=== PATIENT | female | born 1965 | race Caucasian/White ===

== ENCOUNTER → 2017-05-27 | Outpatient (CLI) | payer OTHER ==
[2017-05-27 08:47] LABS: Basophils # (A) 0.1 k/uL (0-0.2); Basophils % (A) 1 %; CH 32.2; CHCM 34.6; Eosinophils # (A) 0.2 k/uL (0-0.7); Eosinophils % (A) 3 %; HDW 2.82; HGB 14.5 gm/dL (11.4-16.0); Luc # (Auto) 0.13; Luc % (Auto) 2; Lymphocytes # (A) 2.5 k/uL (1.0-4.8); Lymphocytes % (A) 41 %; MCH 32.2 pg (25.0-35.0); MCHC 34.5 g/dL (31.0-37.0); MCV 93.3 fL (80.0-100.0); Mean Platelet Volume 7.9; Monocytes # (A) 0.4 k/uL (0-1.0); Monocytes % (A) 6 %; Neutrophils # (A) 2.9 k/uL (1.3-7.7); Neutrophils % (A) 47 %; RDW 13.7 % (11.5-15.5); WBC 6.1 k/uL (3.8-10.6)
[2017-05-27 08:50] LABS: ALT 45 U/L (9-52); AST 23 U/L (14-36); Alkaline Phosphatase 108 U/L (38-126); Anion Gap 9 mmol/L; Blood Urea Nitrogen 21 mg/dL (7-17); Calcium 9.7 mg/dL (8.4-10.2); Carbon Dioxide 30 mmol/L (22-30); Chloride 102 mmol/L (98-107); Cholesterol 223 mg/dL (<200); Glucose 94 mg/dL (74-99); HDL Cholesterol 62 mg/dL (40-60); Non-African American GFR(MDRD) 50 (>60 ml/min/1.73 sqM); Potassium 4.3 mmol/L (3.5-5.1); Sodium 141 mmol/L (137-145); Total Bilirubin 0.7 mg/dL (0.2-1.3); Total Protein 7.7 g/dL (6.3-8.2); Triglycerides 149 mg/dL (<150)
--- NOTE | 2017-05-31 11:04 | MM ---
Reason for exam: screening (asymptomatic). Last mammogram was performed 1 year ago. History: Patient is postmenopausal. Family history of breast cancer in grandmother. Took hormonal contraceptives for 6 months. Took estrogen for 14 years beginning at age 32. Physical Findings: A clinical breast exam by your physician is recommended on an annual basis and results should be correlated with mammographic findings. MG 3D Screening Mammo W/Cad Bilateral CC and MLO view(s) were taken. Prior study comparison: May 21, 2014, right breast MG work up mamm w CAD RT. No significant changes when compared with prior studies. ASSESSMENT: Negative, BI-RAD 1 RECOMMENDATION: Routine screening mammogram of both breasts in 1 year.
== END ==
LOC: RADMAMWWP 07:38
PROVIDERS: ATTEND Family Medicine
DX: Z12.31 Encounter for screening mammogram for malignant neoplasm of breast (principal); I10 Essential (primary) hypertension
CPT/HCPCS: 80061; 80053; 84443; 85025; 77063; G0202

== ENCOUNTER → 2017-06-14 | Outpatient (CLI) | payer OTHER | END | disposition home or self-care (01) | LOC: LABWHC1 08:26 | PROVIDERS: ATTEND Family Medicine | DX: R94.4 Abnormal results of kidney function studies (principal) | CPT/HCPCS: 36415; 82565; 84520 ==

== ENCOUNTER → 2017-07-13 | Outpatient (CLI) | payer OTHER ==
[2017-07-13 10:23] LABS: Calcium 9.7 mg/dL (8.4-10.2); Potassium 4.6 mmol/L (3.5-5.1)
== END | disposition home or self-care (01) ==
LOC: LABWHC1 09:16
PROVIDERS: ATTEND Family Medicine
DX: R79.89 Other specified abnormal findings of blood chemistry (principal)
CPT/HCPCS: 36415; 80048

== ENCOUNTER 2018-04-19 10:32 | Day surgery (SDC) | payer OTHER ==
[2018-04-14 11:58] VITALS: BMI 35.5
[~2018-04-19 10:32] MED LIST: LACTATED RINGERS 1,000 ML IV SCH; LIDOCAINE 1% 20 ML VIAL (10MG/ML) FOR IV START INTRADERMA PRN
[2018-04-19 11:55] VITALS: RESP 16; TEMP 98.9
[2018-04-19] MEDS ORDERED: MIDAZOLAM 2 MG/2 ML VIAL IV ONE (12:00)
[2018-04-19] MEDS ORDERED: PROPOFOL 10 MG/ML 20 ML VIAL IV ONE (12:07)
--- NOTE | 2018-04-19 12:21 | P.PCN ---
Date of Procedure: 04/19/18 Procedure(s) Performed: BRIEF HISTORY: Patient is a 52-year-old pleasant white female, scheduled for an elective colonoscopy as a part of value should of prior history of colon polyps. PROCEDURE PERFORMED: Colonoscopy. PREOPERATIVE DIAGNOSIS: History of colon polyps. IV sedation per Anesthesia. PROCEDURE: After informed consent was obtained, the patient, was brought into the endoscopy unit. IV sedation was administered by Anesthesia under continuous monitoring. Digital rectal examination was normal. Initially the Olympus CF- 160 flexible video colonoscope was then inserted in the rectum, gradually advanced into the cecum without any difficulty. Careful examination was performed as the scope was gradually being withdrawn. Ileocecal valve and the appendiceal orifice were visualized and appeared normal. Prep was fair. Mucosa of the cecum, ascending colon, transverse colon, descending colon, sigmoid colon, and rectum appeared normal. Retroflexion was performed in the rectum and no lesions were seen. The patient tolerated the procedure well. IMPRESSION: Normal-appearing colon from rectum to cecum with no evidence of colorectal neoplasia. RECOMMENDATIONS: Findings of this examination were discussed with the patient as well as a family. She was advised to have a repeat surveillance colonoscopy in 5 years from now because of the prior history of colon polyps.
[2018-04-19 12:46] VITALS: BP 170/91; PULSE 72
== END 2018-04-19 12:58 | disposition home or self-care (01) ==
LOC: ORWHC2ENDO 10:32
PROVIDERS: ATTEND Internal Medicine Gastroenterology
DX: Z12.11 Encounter for screening for malignant neoplasm of colon (principal); Z86.010 Personal history of colon polyps; I10 Essential (primary) hypertension; I34.1 Nonrheumatic mitral (valve) prolapse; Z79.899 Other long term (current) drug therapy; Z88.5 Allergy status to narcotic agent; Z88.1 Allergy status to other antibiotic agents; Z88.8 Allergy status to other drugs, medicaments and biological substances; Z91.018 Allergy to other foods
CPT/HCPCS: J2250; J2704; G0105

== ENCOUNTER → 2018-06-20 | Outpatient (CLI) | payer OTHER ==
--- NOTE | 2018-06-22 11:56 | MM ---
Reason for exam: screening (asymptomatic). Last mammogram was performed 1 year and 1 month ago. History: Patient is postmenopausal. Family history of breast cancer in grandmother. Took hormonal contraceptives for 6 months. Took estrogen for 14 years beginning at age 32. Physical Findings: A clinical breast exam by your physician is recommended on an annual basis and results should be correlated with mammographic findings. MG 3D Screening Mammo W/Cad Bilateral CC and MLO view(s) were taken. Prior study comparison: May 27, 2017, bilateral MG 3d screening mammo w/cad. May 25, 2016, bilateral MG 3d screening mammo w/cad. The breast tissue is heterogeneously dense. This may lower the sensitivity of mammography. Stable benign calcifications. Partially obscured nodule right breast 5.9cm from nipple. This finding is changed when compared with previous exams. ASSESSMENT: Incomplete: need additional imaging evaluation, BI-RAD 0 RECOMMENDATION: Special view mammogram of the right breast. If lesion persists on supplemental views, image directed ultrasound is recommended. [facility] will attempt to contact patient to return for supplemental views and ultrasound if indicated.
== END | disposition home or self-care (01) ==
LOC: RADMAMWWP 07:45
PROVIDERS: ATTEND Family Medicine
DX: Z12.31 Encounter for screening mammogram for malignant neoplasm of breast (principal)
CPT/HCPCS: 77063; 77067

== ENCOUNTER → 2018-07-06 | Outpatient (CLI) | payer OTHER ==
--- NOTE | 2018-07-06 13:53 | MM ---
Reason for exam: additional evaluation requested from abnormal screening. Last mammogram was performed 1 month ago. History: Patient is postmenopausal. Family history of breast cancer in grandmother. Took hormonal contraceptives for 6 months. Took estrogen for 14 years beginning at age 32. Physical Findings: Nurse did not find any significant physical abnormalities on exam. MG 3D Work Up W/Cad RT Spot compression CC, spot compression MLO, and ML view(s) were taken of the right breast. Prior study comparison: June 20, 2018, bilateral MG 3d screening mammo w/cad. May 27, 2017, bilateral MG 3d screening mammo w/cad. Finding: There is a 3 mm equal density (isodense), round mass located 5 cm from the nipple in the 5-6 o'clock position of the right breast. New finding since June 20, 2018 and May 27, 2017. These results were verbally communicated with the patient and result sheet given to the patient on 07/06/18. ASSESSMENT: Incomplete: need additional imaging evaluation, BI-RAD 0 RECOMMENDATION: Ultrasound of the right breast.
--- NOTE | 2018-07-06 13:56 | USB ---
Reason for exam: additional evaluation requested from abnormal screening. History: Patient is postmenopausal. Family history of breast cancer in grandmother. Took hormonal contraceptives for 6 months. Took estrogen for 14 years beginning at age 32. US Breast Workup Limited RT Right limited breast ultrasound including focal area of concern, retroareolar and axilla demonstrates an axilla node and a 0.3 x 0.3 x 0.2cm lesion too small to characterize at 5 o'clock, likely too small to ultrasound biopsy, although an attempt could be made. These results were verbally communicated with the patient and result sheet given to the patient on 07/06/18. ASSESSMENT: Suspicious, BI-RAD 4 RECOMMENDATION: Surgical consultation and stereotactic core biopsy of the right breast. Called Dr. Snell with mammographic findings and has scheduled an appointment for the patient for 08/10/18 at 8:[address] Perez. Biopsy scheduled for 07/21/18 at 10:30. PRELIMINARY REPORT CALLED AND FAXED TO DR. PEREZ ON 07/06/18.
== END | disposition home or self-care (01) ==
LOC: RADMAMWWP 08:01
PROVIDERS: ATTEND Family Medicine
DX: R92.8 Other abnormal and inconclusive findings on diagnostic imaging of breast (principal)
CPT/HCPCS: 77061; 77065

== ENCOUNTER → 2018-07-21 | Day surgery (SDC) | payer OTHER ==
[2018-07-21 09:52] VITALS: BP 192/104; PULSE 68; RESP 16; TEMP 98.3; BMI 78.2
--- NOTE | 2018-07-21 12:33 | MM ---
EXAMINATION TYPE: MG discontinued stereo core RT DATE OF EXAM: 07/21/2018 COMPARISON: NONE CLINICAL HISTORY: Right breast nodule Given multiple elevated systolic and diastolic blood pressure readings the procedure was discontinued . Recommend stereotactic core biopsy when blood pressure is at safe levels. Recommendation: Suspicious BI-RADS 4 Recommendation: Stereotactic core biopsy right breast.
== END ==
LOC: RADMAMWWP 09:29
PROVIDERS: ATTEND Surgery
DX: Z53.9 Procedure and treatment not carried out, unspecified reason (principal)

== ENCOUNTER → 2018-08-08 | Day surgery (SDC) | payer OTHER ==
[2018-08-08 07:28] VITALS: RESP 16; BMI 35.5
[2018-08-08 09:04] VITALS: BP 158/92; PULSE 66; TEMP 98.2
--- NOTE | 2018-08-08 09:43 | MM ---
EXAMINATION TYPE: MG stereo VAD BX RT DATE OF EXAM: 08/08/2018 COMPARISON: Prior mammogram July 06, 2018 and older studies. CLINICAL HISTORY: Abnormal mammogram TECHNIQUE: Stereotactic guided core biopsy of right breast with clip placement and follow-up two-view mammogram. FINDINGS: The procedure of stereotactic guided core biopsy was explained to the patient. Benefits, alternatives, and risks were discussed. An informed consent was then obtained. Lesion is best seen on lateral projection in inferior aspect right breast corresponding to lateral aspect. I performed the localization then performed the remainder of the procedure. A vacuum assisted biopsy gun was used to obtain multiple core samples. The patient tolerated the procedure well without any immediate complication. The patient was kept in the radiology department for short stay after the procedure and then discharged home in stable condition. Post biopsy mammogram shows the clip to appear in satisfactory position relative to the targeted area of concern on the preprocedure images. IMPRESSION: SUCCESSFUL, UNCOMPLICATED STEREOTACTIC GUIDED CORE BIOPSY OF AREA OF CONCERN IN THE RIGHT BREAST, FULL PATHOLOGY RESULTS TO FOLLOW. Pathology Results: Benign BREAST, RIGHT, STEREOTACTIC CORE BIOPSY: Fibrocystic changes including apocrine metaplasia, cysts and fibrosis. Recommendation Follow up mammogram of the right breast in 6 months. IDALMIS
== END ==
LOC: RADMAMWWP 06:51
PROVIDERS: ATTEND Surgery
DX: N60.81 Other benign mammary dysplasias of right breast (principal); N60.31 Fibrosclerosis of right breast; N60.11 Diffuse cystic mastopathy of right breast; Z88.1 Allergy status to other antibiotic agents; Z91.02 Food additives allergy status; Z88.5 Allergy status to narcotic agent; Z88.8 Allergy status to other drugs, medicaments and biological substances; Z91.09 Other allergy status, other than to drugs and biological substances
CPT/HCPCS: 88305; 19081; A4648; J2001

== ENCOUNTER → 2019-02-07 | Outpatient (CLI) | payer OTHER ==
--- NOTE | 2019-02-07 10:15 | MM ---
Reason for exam: follow-up at short interval from prior study. Last mammogram was performed 7 months ago. History: Patient is postmenopausal. Family history of breast cancer in grandmother. Benign MG stereo VAD BX RT of the right breast, August 08, 2018. MG discontinued stereo core RT of the right breast, July 21, 2018. Took hormonal contraceptives for 6 months. Took estrogen for 14 years beginning at age 32. Physical Findings: Nurse did not find any significant physical abnormalities on exam. MG 3D Diag Mammo W/Cad RT CC and MLO view(s) were taken of the right breast. Prior study comparison: July 06, 2018, right breast MG 3d work up w/cad RT. June 20, 2018, bilateral MG 3d screening mammo w/cad. The breast tissue is heterogeneously dense. This may lower the sensitivity of mammography. No suspicious abnormality. Right biposy marker noted. No significant new findings when compared with previous films. These results were verbally communicated with the patient and result sheet given to the patient on 02/07/19. ASSESSMENT: Negative, BI-RAD 1 RECOMMENDATION: Return to routine screening mammogram schedule for both breasts. Back on schedule for May 2019.
--- NOTE | 2019-02-07 10:16 | USB ---
Reason for exam: follow-up at short interval from prior study. History: Patient is postmenopausal. Family history of breast cancer in grandmother. Benign MG stereo VAD BX RT of the right breast, August 08, 2018. MG discontinued stereo core RT of the right breast, July 21, 2018. Took hormonal contraceptives for 6 months. Took estrogen for 14 years beginning at age 32. US Breast RT Right complete breast ultrasound includes all four quadrants, the retroareolar region and axilla. Finding demonstrates a 8mm lymph node within normal limits of size at the axilla tail and duct prominence at the posterior nipple. These results were verbally communicated with the patient and result sheet given to the patient on 02/07/19. ASSESSMENT: Benign, BI-RAD 2 RECOMMENDATION: Return to routine screening mammogram schedule for both breasts. Back on schedule for May 2019.
== END | disposition home or self-care (01) ==
LOC: RADMAMWWP 08:49
PROVIDERS: ATTEND Surgery
DX: R92.8 Other abnormal and inconclusive findings on diagnostic imaging of breast (principal)
CPT/HCPCS: 77061; 77065

== ENCOUNTER → 2019-06-27 | Outpatient (CLI) | payer OTHER ==
--- NOTE | 2019-06-28 14:34 | MM ---
Reason for exam: screening (asymptomatic). Last mammogram was performed 5 months ago. History: Patient is postmenopausal. Family history of breast cancer in grandmother. Benign MG stereo VAD BX RT of the right breast, August 08, 2018. MG discontinued stereo core RT of the right breast, July 21, 2018. Took hormonal contraceptives for 6 months. Took estrogen for 14 years beginning at age 32. Physical Findings: A clinical breast exam by your physician is recommended on an annual basis and results should be correlated with mammographic findings. MG 3D Screening Mammo W/Cad Bilateral CC and MLO view(s) were taken. Prior study comparison: February 07, 2019, right breast MG 3d diag mammo w/cad RT. July 06, 2018, right breast MG 3d work up w/cad RT. June 20, 2018, bilateral MG 3d screening mammo w/cad. May 25, 2016, bilateral MG 3d screening mammo w/cad. The breast tissue is heterogeneously dense. This may lower the sensitivity of mammography. There are benign appearing round calcifications bilaterally. Previous mammotome biopsy in the right breast. There is no discrete abnormality. ASSESSMENT: Benign, BI-RAD 2 RECOMMENDATION: Routine screening mammogram of both breasts in 1 year.
== END | disposition home or self-care (01) ==
LOC: RADMAMWWP 07:56
PROVIDERS: ATTEND Family Medicine
DX: Z12.31 Encounter for screening mammogram for malignant neoplasm of breast (principal)
CPT/HCPCS: 77063; 77067

== ENCOUNTER → 2019-09-17 | Outpatient (CLI) | payer OTHER ==
[2019-09-17 08:39] LABS: Basophils % (A) 1 %; Eosinophils # (A) 0.2 k/uL (0-0.7); Eosinophils % (A) 3 %; HCT 38.6 % (34.0-46.0); HGB 13.5 gm/dL (11.4-16.0); Lymphocytes # (A) 2.2 k/uL (1.0-4.8); Lymphocytes % (A) 34 %; MCHC 34.9 g/dL (31.0-37.0); MCV 91.7 fL (80.0-100.0); Mean Platelet Volume 6.5; Monocytes # (A) 0.4 k/uL (0-1.0); Monocytes % (A) 6 %; Neutrophils # (A) 3.7 k/uL (1.3-7.7); Neutrophils % (A) 55 %; Platelet Count 299 k/uL (150-450); RBC 4.21 m/uL (3.80-5.40); RDW 12.5 % (11.5-15.5); WBC 6.7 k/uL (3.8-10.6)
[2019-09-17 12:02] LABS: African American GFR (CKD) 59.3 (60.0-200.0); Albumin 4.5 g/dL (3.80-4.90); Albumin/Globulin Ratio 1.61 (1.60-3.17); Anion Gap 8.9 mmol/L (4.00-12.00); BUN/Creat Ratio 22.5 Ratio (12.00-20.00); Calcium 9.8 mg/dL (8.7-10.3); Carbon Dioxide 29.1 mmol/L (21.6-31.8); Chol/HDL Ratio 4.23; Globulin 2.8 g/dL (1.6-3.3); LDL Cholesterol,Calculated 134.6 mg/dL (0.0-131.0); Total Bilirubin 0.7 mg/dL (0.2-1.2); Total Protein 7.3 g/dL (6.2-8.2); VLDL Calculation 33.4 mg/dL (5.00-40.00)
== END | disposition home or self-care (01) ==
LOC: LABWHC1 07:16
PROVIDERS: ATTEND Family Medicine
DX: I10 Essential (primary) hypertension (principal); Z11.59 Encounter for screening for other viral diseases
CPT/HCPCS: 36415; 80053; 80061; 84443; 85025; 86803

== ENCOUNTER → 2020-07-01 | Outpatient (CLI) | payer OTHER ==
--- NOTE | 2020-07-02 10:09 | MM ---
Reason for exam: screening (asymptomatic). Last mammogram was performed 1 year ago. History: Patient is postmenopausal. Family history of breast cancer in grandmother. Benign MG stereo VAD BX RT of the right breast, August 08, 2018. MG discontinued stereo core RT of the right breast, July 21, 2018. Took hormonal contraceptives for 6 months. Took estrogen for 14 years beginning at age 32. Physical Findings: A clinical breast exam by your physician is recommended on an annual basis and results should be correlated with mammographic findings. MG 3D Screening Mammo W/Cad Bilateral CC and MLO view(s) were taken. Prior study comparison: June 27, 2019, bilateral MG 3d screening mammo w/cad. February 07, 2019, right breast MG 3d diag mammo w/cad RT. The breast tissue is heterogeneously dense. This may lower the sensitivity of mammography. Stable benign calcifications. There is no discrete abnormality. No significant changes when compared with prior studies. ASSESSMENT: Benign, BI-RAD 2 RECOMMENDATION: Routine screening mammogram of both breasts in 1 year.
== END | disposition home or self-care (01) ==
LOC: RADMAMWWP 07:42
PROVIDERS: ATTEND Family Medicine
DX: Z12.31 Encounter for screening mammogram for malignant neoplasm of breast (principal)
CPT/HCPCS: 77063; 77067

== ENCOUNTER → 2021-03-31 | Outpatient (CLI) | payer OTHER ==
--- NOTE | 2021-03-31 14:40 | US ---
EXAMINATION TYPE: US kidneys/renal and bladder DATE OF EXAM: 03/31/2021 COMPARISON: NONE CLINICAL HISTORY: R79.88 ABN FINDINGS OF BLOOD CHEMISTRY. Abnormal creatinine levels EXAM MEASUREMENTS: Right Kidney: 9.3 x 4.2 x 4.0 cm Left Kidney: 10.1 x 5.8 x 5.0 cm Right Kidney: No hydronephrosis or shadowing renal calculi. Small hypoechoic area visualized measurin g 0.9 x 0.6 x 0.7 cm upper pole, possible cystic structure. Cystic area visualized lower pole 0.9 x 0 .8 x 0.9 cm Left Kidney: No hydronephrosis or shadowing renal calculi seen Bladder: wnl Bilateral Jets seen: Yes No hydronephrosis or shadowing renal calculi. IMPRESSION: 1. No hydronephrosis or shadowing renal calculi. 2. Tiny subcentimeter cystic structures in the right kidney most suggestive of complex, hemorrhagic o r proteinaceous renal cysts. These are too small to characterize by ultrasound. For further character ization, a CT or MRI using renal protocol could be obtained if clinically indicated.
== END | disposition home or self-care (01) ==
LOC: RADUSWWP 09:24
PROVIDERS: ATTEND Family Medicine
DX: N28.89 Other specified disorders of kidney and ureter (principal)
CPT/HCPCS: 76770

== ENCOUNTER → 2021-07-16 | Outpatient (CLI) | payer OTHER ==
--- NOTE | 2021-07-17 11:38 | MM ---
Reason for exam: screening (asymptomatic). Last mammogram was performed 1 year ago. History: Patient is postmenopausal. Family history of breast cancer in grandmother. Benign MG stereo VAD BX RT of the right breast, August 08, 2018. MG discontinued stereo core RT of the right breast, July 21, 2018. Took hormonal contraceptives for 6 months. Took estrogen for 14 years beginning at age 32. Physical Findings: A clinical breast exam by your physician is recommended on an annual basis and results should be correlated with mammographic findings. MG 3D Screening Mammo W/Cad Bilateral CC and MLO view(s) were taken. Prior study comparison: July 01, 2020, bilateral MG 3d screening mammo w/cad. The breast tissue is heterogeneously dense. This may lower the sensitivity of mammography. Benign appearing bilateral calcifications. Previous mammotome biopsy in the right breast. There is chronic nodularity in the left breast, stable. No significant changes when compared with prior studies. ASSESSMENT: Benign, BI-RAD 2 RECOMMENDATION: Routine screening mammogram of both breasts in 1 year.
== END | disposition home or self-care (01) ==
LOC: RADMAMWWP 09:21
PROVIDERS: ATTEND Family Medicine
DX: Z12.31 Encounter for screening mammogram for malignant neoplasm of breast (principal); Z78.0 Asymptomatic menopausal state; Z80.3 Family history of malignant neoplasm of breast
CPT/HCPCS: 77063; 77067

== ENCOUNTER → 2022-07-26 | Outpatient (CLI) | payer OTHER ==
--- NOTE | 2022-07-27 09:20 | MM ---
Reason for Exam: Screening (asymptomatic). Last screening mammogram was performed 12 month(s) ago. Patient History: Menarche at age 11. First Full-Term at age 22. Left ovary removed at age 31. Right ovary removed at age 31. Hysterectomy at age 31. Postmenopausal. Estrogen for 14 years from age 32 until age 50. Hormonal Contraceptives for 6 months. 08/08/2018, Benign Core Biopsy on the right side. 07/21/2018, MG discontinued stereo core RT on the right side. Maternal grandmother had breast cancer. Sister had breast cancer, age 42. Risk Values: Nelly 5 year model risk: 2.9%. NCI Lifetime model risk: 16.9%. Prior Study Comparison: 06/27/2019 Bilateral Screening Mammogram, [facility]. 07/01/2020 Bilateral Screening Mammogram, [facility]. 07/16/2021 Bilateral Screening Mammogram, [facility]. Tissue Density: The breast tissue is heterogeneously dense. This may lower the sensitivity of mammography. Findings: Analyzed By CAD. There is no suspicious group of microcalcifications or new suspicious mass in either breast. Overall Assessment: Benign, BI-RAD 2 Management: Screening Mammogram of both breasts in 1 year. A clinical breast exam by your physician is recommended on an annual basis and results should be correlated with mammographic findings. Electronically signed and approved by: Jeff Naylor M.D. Radiologis
== END | disposition home or self-care (01) ==
LOC: RADMAMWWP 08:24
PROVIDERS: ATTEND Family Medicine
DX: Z12.31 Encounter for screening mammogram for malignant neoplasm of breast (principal); Z78.0 Asymptomatic menopausal state; Z80.3 Family history of malignant neoplasm of breast
CPT/HCPCS: 77063; 77067

== ENCOUNTER → 2023-05-20 | Day surgery (SDC) | payer OTHER ==
[2023-05-17 12:34] VITALS: BMI 34.4
[~2023-05-20] MED LIST changes: +LACTATED RINGERS 1,000 ML IV ONE; +LIDOCAINE 1% (10MG/ML) FOR IV START INTRADERMA PRN; -LIDOCAINE 1% 20 ML VIAL (10MG/ML) FOR IV START INTRADERMA PRN; +PROPOFOL 10 MG/ML 20 ML VIAL IV ONE
[2023-05-20 11:45] VITALS: TEMP 97.4
--- NOTE | 2023-05-20 12:19 | P.PCN ---
Date of Procedure: 05/20/23 Procedure(s) Performed: BRIEF HISTORY: Patient is a 57-year-old pleasant white female scheduled for an elective colonoscopy as a part of evaluation of prior history of colon polyps. Her last colonoscopy was 5 years ago. PROCEDURE PERFORMED: Colonoscopy. PREOPERATIVE DIAGNOSIS: History of colon polyps. IV sedation per Anesthesia. PROCEDURE: After informed consent was obtained, the patient, was brought into the endoscopy unit. IV sedation was administered by Anesthesia under continuous monitoring. Digital rectal examination was normal. Initially the Olympus CF-160 flexible video colonoscope was then inserted in the rectum, gradually advanced into the cecum without any difficulty. Careful examination was performed as the scope was gradually being withdrawn. Ileocecal valve and the appendiceal orifice were visualized and appeared normal. Prep was excellent. Mucosa of the cecum, ascending colon, transverse colon, descending colon, sigmoid colon, and rectum appeared normal. Retroflexion was performed in the rectum and no lesions were seen. The patient tolerated the procedure well. IMPRESSION: Normal-appearing colon from rectum to cecum with no evidence of colorectal neoplasia. . RECOMMENDATIONS: Findings of this examination were discussed with the patient as well as a family.. She was advised to have a repeat screening colonoscopy in 10 years.
[2023-05-20 12:40] VITALS: BP 158/87; PULSE 62; RESP 14
== END ==
LOC: ORWHC2ENDO 10:54
PROVIDERS: ATTEND Internal Medicine Gastroenterology
DX: Z12.11 Encounter for screening for malignant neoplasm of colon (principal); Z86.010 Personal history of colon polyps; Z79.899 Other long term (current) drug therapy; I10 Essential (primary) hypertension; E78.5 Hyperlipidemia, unspecified; I34.1 Nonrheumatic mitral (valve) prolapse; Z88.5 Allergy status to narcotic agent; Z88.8 Allergy status to other drugs, medicaments and biological substances
CPT/HCPCS: J2704; G0105; 45378

== ENCOUNTER → 2023-08-04 | Outpatient (CLI) | payer OTHER | END | disposition home or self-care (01) | LOC: RADUSWWP 08:56 | PROVIDERS: ATTEND Internal Medicine Nephrology | DX: Z53.9 Procedure and treatment not carried out, unspecified reason (principal) ==

== ENCOUNTER → 2023-08-04 | Outpatient (CLI) | payer OTHER ==
--- NOTE | 2023-08-04 14:57 | US ---
EXAMINATION TYPE: US kidneys/renal and bladder DATE OF EXAM: 08/04/2023 COMPARISON: 03/31/2021 CLINICAL INDICATION: Female, 57 years old with history of N18.31; CKD, no pain, h/o cyst EXAM MEASUREMENTS: Right Kidney: 9.2 x 4.8 x 3.9 cm Left Kidney: 10.2 x 4.8 x 4.6 cm Right Kidney: Septated cyst at the lower pole measuring = 1.4 x 1.1 x 1.0cm, mild pelvicaliectasis. Left Kidney: No hydronephrosis or masses seen Bladder: Partially distended bladder shows no gross abnormality. There is no evidence for hydronephrosis at this point in time. No nephrolithiasis is seen. No josie s are identified. The urinary bladder is anechoic. Bilateral ureteral jets are seen. IMPRESSION: 1. A mildly complex cortical cyst of the right kidney may correspond to a 9 mm lesion seen back in 20 21. 6-12 month follow-up ultrasound recommended to reassess. 2. Mild fullness of the right renal collecting system probably transient. Short interval follow-up if concern for early hydronephrosis.
--- NOTE | 2023-08-05 09:49 | MM ---
Reason for Exam: Screening (asymptomatic). Last mammogram was performed 1 year(s) and 1 month(s) ago. Patient History: Menarche at age 11. First Full-Term at age 22. Left ovary removed at age 31. Right ovary removed at age 31. Hysterectomy at age 31. Postmenopausal. Estrogen for 14 years from age 32 until age 50. Hormonal Contraceptives for 6 months. 08/08/2018, Benign Core Biopsy on the right side. 07/21/2018, MG discontinued stereo core RT on the right side. Maternal grandmother had breast cancer. Sister had breast cancer, age 42. Risk Values: Nelly 5 year model risk: 3.0%. NCI Lifetime model risk: 16.6%. Prior Study Comparison: 07/01/2020 Bilateral Screening Mammogram, [facility]. 07/16/2021 Bilateral Screening Mammogram, [facility]. 07/26/2022 Bilateral MG 3D screening mammo w/cad, [facility]. Tissue Density: The breast tissue is heterogeneously dense. This may lower the sensitivity of mammography. Findings: Analyzed By CAD. There is no suspicious group of microcalcifications or new suspicious mass in either breast. Overall Assessment: Benign, BI-RAD 2 Management: Screening Mammogram of both breasts in 1 year. . Patient should continue monthly self-breast exams. A clinical breast exam by your physician is recommended on an annual basis. This exam should not preclude additional follow-up of suspicious palpable abnormalities. Note on Nelly scores and lifetime risk: 1. A Nelly score greater than 3% is considered moderate risk. If this is the case, consider specialist referral to assess eligibility for a risk reducing agent. 2. If overall lifetime risk for the development of breast cancer is 20% or higher, the patient may qualify for future screening with alternating mammogram and breast MRI. Electronically signed and approved by: Jeff Naylor M.D. Radiologis
== END | disposition home or self-care (01) ==
LOC: RADMAMWWP 08:54
PROVIDERS: ATTEND Family Medicine
DX: Z12.31 Encounter for screening mammogram for malignant neoplasm of breast (principal); N18.31 Chronic kidney disease, stage 3a; N28.1 Cyst of kidney, acquired; Z78.0 Asymptomatic menopausal state; Z80.3 Family history of malignant neoplasm of breast
CPT/HCPCS: 76770; 77063; 77067

== ENCOUNTER → 2024-08-14 | Outpatient (CLI) | payer OTHER ==
--- NOTE | 2024-08-16 10:03 | US ---
EXAMINATION TYPE: US kidneys/renal and bladder DATE OF EXAM: 08/14/2024 COMPARISON: US 2022 CLINICAL INDICATION: Female, 58 years old with history of N183 STAGE 3A; CKD TECHNIQUE: Grayscale and color Doppler imaging of the bilateral kidneys and urinary bladder: FINDINGS: EXAM MEASUREMENTS: Right Kidney: 10.7 x 5.9 x 4.4 cm Left Kidney: 10.1 x 4.4 x 6.1 cm Exam is limited due to gas. Right Kidney: Prominent renal pelvis. *Complex area seen lower pole: 2.0 x 1.6 x 1.6 cm. Left Kidney: No hydronephrosis or masses seen Bladder: Appears wnl Bilateral Jets seen: Right jet seen during exam. IMPRESSION: 1. No evidence for acute process. 2. Right renal complex cyst. Further evaluation with renal mass protocol MRI may be of benefit. [facility], , 08/16/2024 10:00 AM
== END | disposition home or self-care (01) ==
LOC: RADUSWWP 08:48
PROVIDERS: ATTEND Internal Medicine Nephrology
DX: N18.31 Chronic kidney disease, stage 3a
CPT/HCPCS: 76770

== ENCOUNTER → 2024-08-14 | Outpatient (CLI) | payer OTHER ==
--- NOTE | 2024-08-14 12:27 | MM ---
Reason for Exam: Screening (asymptomatic). Last screening mammogram was performed 12 month(s) ago. Patient History: Menarche at age 11. First Full-Term at age 22. Left ovary removed at age 31. Right ovary removed at age 31. Hysterectomy at age 31. Postmenopausal. Patient has history of breast feeding. Estrogen for 14 years from age 32 until age 50. Hormonal Contraceptives for 6 months. 08/08/2018, Benign Core Biopsy on the right side. 07/21/2018, MG discontinued stereo core RT on the right side. Maternal grandmother (gr) had breast cancer. Sister had breast cancer, age 42. Risk Values: Nelly 5 year model risk: 3.1%. NCI Lifetime model risk: 16.2%. Prior Study Comparison: 06/20/2018 Bilateral Screening Mammogram, [facility]. 07/06/2018 Right Diagnostic Mammogram, [facility]. 02/07/2019 Right Diagnostic Mammogram, [facility]. 06/27/2019 Bilateral Screening Mammogram, [facility]. 07/01/2020 Bilateral Screening Mammogram, [facility]. 07/16/2021 Bilateral Screening Mammogram, [facility]. 07/26/2022 Bilateral MG 3D screening mammo w/cad, [facility]. 08/04/2023 Bilateral MG 3D screening mammo w/cad, [facility]. Tissue Density: The breasts are heterogeneously dense, which may obscure small masses. Findings: Analyzed By CAD. There is no suspicious group of microcalcifications or new suspicious mass in either breast. Benign-appearing calcifications. Chronic nodularity left breast upper outer quadrant stable. Overall Assessment: Benign, BI-RAD 2 Management: Screening Mammogram of both breasts in 1 year. . Patient should continue monthly self-breast exams. A clinical breast exam by your physician is recommended on an annual basis. This exam should not preclude additional follow-up of suspicious palpable abnormalities. Note on Nelly scores and lifetime risk: 1. A Nelly score greater than 3% is considered moderate risk. If this is the case, consider specialist referral to assess eligibility for a risk reducing agent. 2. If overall lifetime risk for the development of breast cancer is 20% or higher, the patient may qualify for future screening with alternating mammogram and breast MRI. [facility], , 08/14/2024 12:24 PM. Electronically signed and approved by: Tomi Machuca M.D. Radiologis
== END ==
LOC: RADMAMWWP 08:47
PROVIDERS: ATTEND Family Medicine
CPT/HCPCS: 77063; 77067